=== PATIENT | female | born 1935 | race Caucasian/White ===

== ENCOUNTER 2017-11-13 09:20 | Day surgery (SDC) | payer OTHER, MEDICARE ==
[2017-11-13] MEDS ORDERED: DIAZEPAM 5 MG TABLET ONE (10:20)
[2017-11-13] MEDS ORDERED: HYDROCODONE/APAP 7.5/325 MG TAB ONE (12:07)
--- NOTE | 2017-11-13 12:50 | RAD REPORT ---
EXAM DESCRIPTION: RAD - Myelography Lumbar - 11/13/2017 11:46 am CLINICAL HISTORY: M54.5 COMPARISON: Myelography Lumbar dated 07/05/2017 TECHNIQUE: The procedure, risks and alternatives to the procedure were discussed with the patient in detail. After answering all questions, both oral and written consent were obtained. Time-out procedu re was performed. The patient was placed in an oblique prone position on the fluoroscopic table. The skin of the lower back was prepped and draped in the usual sterile fashion. After anesthetizing the skin and deeper sof t tissues with 1% lidocaine, a 22 gauge needle was advanced into the thecal sac at the L2-3 level. Approximately 15 cc of Isovue 200 M injected into the subarachnoid space. At the conclusion of the procedure the needle was withdrawn and a sterile bandage placed over the pun cture site. The patient tolerated the procedure well without immediate complications. The patient was then sent to the CT scanner for CT myelography of the lumbar spine. Total fluoro time: 1 minutes. Images obtained: 4 IMPRESSION: Successful fluoroscopic guided lumbar puncture and contrast injection for CT lumbar myel ogram.
--- NOTE | 2017-11-13 13:53 | RAD REPORT ---
EXAM DESCRIPTION: CT - Spine Lumbar Wo Con - 11/13/2017 11:34 am CLINICAL HISTORY: Radiculopathy. M54.5 COMPARISON: Spine Lumbar Wo Con dated 07/05/2017 TECHNIQUE: Axial CT imaging of the lumbar spine was performed with coronal and sagittal re-formatted images with intrathecal contrast material. Lumbar puncture for contrast injection is separately repo rted. All CT scans are performed using dose optimization technique as appropriate and may include automated exposure control or mA/KV adjustment according to patient size. FINDINGS: L1-2: No evidence of significant canal or foraminal stenosis. L2-3: Significant facet and ligamentum flavum hypertrophy is present with a broad-based partially harsha cified disc bulge present the findings result in central canal narrowing to 6-7 mm. Bilateral foramin al narrowing is also present. L3-4: 3 mm degenerative anterolisthesis is present with mild vacuum disc degeneration. A large calcif ied disc bulge is present with probable central extrusion. Significant facet and ligament flavum hype rtrophy is present, greater on the right. The findings result in severe central canal stenosis and pr ominent bilateral exit foraminal stenosis. L4-5: 6 mm degenerative anterolisthesis is present with a broad-based posterior disc bulge. A small a mount of extruded disc material centrally associated with this is suspected. Central canal measures 8 mm. Left hemilaminectomy is present, new since comparative study. Mild to moderate facet hypertrophy is noted narrowing both exit foramina. L5-S1: Minimal posterior disc bulge with [id number] facet and ligament flavum hypertrophy. No s ignificant canal or foraminal stenosis. No evidence of nerve root clumping is seen to indicate arachnoiditis. 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 Left hemilaminectomy has been performed since the prior study at the L4-5 level with thickening decom pression of the central canal since the prior myelogram. 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
== END 2017-11-13 14:30 | disposition home or self-care (01) ==
LOC: DS 09:20
PROVIDERS: ATTEND Specialist
PROC: B02BYZZ Computerized Tomography (CT Scan) of Spinal Cord using Other Contrast (ICD-10-PCS; principal; 2017-11-13)
DX: M54.16 Radiculopathy, lumbar region (principal); M54.5 Low back pain
CPT/HCPCS: 62304; 72131; Q9967

== ENCOUNTER 2019-09-02 14:30 | Emergency (ER) | payer OTHER, MEDICARE ==
--- OUTSIDE RECORDS SUMMARY | 2019-09-02 14:33 | XMS REPORT ---
:1935 Author Organization [facility] t Address [address] [place] [address] Dr. Sawant [address] [place] [id number] Care Team Providers Name Role Phone Unavailable Unavailable Unavailable Problems This patient has no known problems. Allergies, Adverse Reactions, Alerts This patient has no known allergies or adverse reactions. Medications This patient has no known medications. Procedures This patient has no known procedures. Results This patient has no known results.
--- NOTE | 2019-09-02 15:23 | ER ---
Nurse's Notes [facility] Name: Lori Cruz Age: 84 yrs Sex: Female : 1935 Arrival Date: 09/02/2019 Time: 14:33 Bed Waiting Private MD: Dennys Perea T Diagnosis: Presentation: 09/01 14:41 Chief complaint: Patient states: Dr. Islas wants me to have a chest x-ray but it dm5 would have taken 2 hours and I couldn't wait that long so I came to the ED. Worsening shortness of breath for "the last month or so". Pt denies being around anyone ill or traveling. Coronavirus screen: Surgical mask placed on patient. Patient moved to private room, placed in contact and droplet isolation with eye protection until further assessment. Patient denies a cough. Patient reports shortness of breath or difficulty breathing. Patient denies measured and/or subjective temperature greater than 100.4F prior to today's visit. Patient denies travel on a cruise ship or to a country the [facility] currently lists as an affected area. Patient denies contact with known and/or suspected case of COVID-19. Ebola Screen: Patient negative for fever greater than or equal to 101.5 degrees Fahrenheit, and additional compatible Ebola Virus Disease symptoms Patient denies exposure to infectious person. Patient denies travel to an Ebola-affected area in the 21 days before illness onset. No symptoms or risks identified at this time. Initial Sepsis Screen: Does the patient meet any 2 criteria? RR > 20 per min. No. Patient's initial sepsis screen is negative. Does the patient have a suspected source of infection? No. Patient's initial sepsis screen is negative. Risk Assessment: Do you want to hurt yourself or someone else? Patient reports no desire to harm self or others. Note "symptoms steadily getting worse". Onset of symptoms was June 2019. 14:41 Method Of Arrival: Ambulatory dm5 14:41 Acuity: APRIL 3 dm5 15:20 Note pt did not want to seen in the ED. She wants to get her chest x-ray and go home. dm5 Pt taken back up to the front to be registered as an outpatient. Vital Signs: 14:41 BP 143 / 57; Pulse 78; Resp 24; Temp 97.2(TE); Pulse Ox 100% on R/A; Weight 58.97 kg dm5 (R); Height 5 ft. 4 in. (162.56 cm) (R); Pain 0/10; 14:41 Body Mass Index 22.31 (58.97 kg, 162.56 cm) dm5 ED Course: 14:33 Patient arrived in ED. mr 14:33 Dennys Perea MD is Private Physician. mr 14:44 Triage completed. dm5 15:22 Eb Islas MD is Referral Physician. dm5 Administered Medications: No medications were administered Outcome: 15:22 Patient left the ED. dm5 Signatures: Nathalia Frances, RN RN dm5 BenedictSarah mr
[2019-09-02 15:28] VITALS: BP 143/57; TEMP 97.2; O2SAT 100
== END 2019-09-02 15:22 | disposition left against medical advice (07) ==
LOC: ER 14:30
DX: Z02.89 Encounter for other administrative examinations (principal); Z53.21 Procedure and treatment not carried out due to patient leaving prior to being seen by health care provider
CPT/HCPCS: 71046; 99281